=== PATIENT | male | born 2000 | race Caucasian/White ===

== ENCOUNTER 2020-05-08 08:06 | Emergency (ER) | payer OTHER ==
[~2020-05-08] VITALS: Ht 182.9 cm; Wt 188.2 kg
[~2020-05-08 08:06] MED LIST: HCTZ/LISINOPRIL PO; LISINOPRIL20 MG PO; MIRALAX17 GM PO; NORCO 5-325 TA1 EACH PO; ONDANSETRON HCL4 M2 PO; PREDNISONE 20 M20 MG PO; XARELTO15 MG PO; XARELTO20 MG PO
[2020-05-08] MEDS ORDERED: LISINOPRIL40 MG PO (08:53)
[2020-05-08] MEDS ORDERED: WELLBUTRIN XL300 MG PO (08:53)
[2020-05-08 10:47] LABS: BASOPHILS 0.4 % (0.0-2.0); EOSINOPHILS 0.9 % (0.0-3.0); HEMATOCRIT 41.3 % (42.0-52.0); LYMPHOCYTES 22.8 % (24.0-44.0); MCH 28.9 pg (26.0-34.0); MCHC 33.9 g/dL (28.0-37.0); MCV 85.1 fL (80.0-100.0); MONOCYTES 5.9 % (1.0-8.0); PLATELET COUNT 266 thou/uL (150-400); RBC 4.86 mil/uL (4.50-6.00); RDW 14.3 % (10.5-14.5); WBC 7.2 thou/uL (4.0-11.0)
[2020-05-08 10:51] LABS: ANION GAP 6 mmol/L (7-16); BUN 11 mg/dL (7-18); CHLORIDE 101 mmol/L (98-107); CO2 30 mmol/L (21-32); CREATININE 0.9 mg/dL (0.7-1.3); GLUCOSE 100 mg/dL (74-106); POTASSIUM 4.7 mmol/L (3.5-5.1); SODIUM 137 mmol/L (136-145)
[2020-05-08 11:02] LABS: ALBUMIN 3.5 g/dL (3.4-5.0); LIPASE 66 U/L (73-393); MAGNESIUM 2.1 mg/dL (1.8-2.4); SGOT 14 U/L (15-37); SGPT 34 U/L (30-65); TOTAL BILIRUBIN 0.5 mg/dL (0.2-1.0); TOTAL PROTEIN 7.5 g/dL (6.4-8.2); TROPONIN-I <0.06 ng/mL (<0.06)
[2020-05-08] MEDS ORDERED: ONDANSETRON ODT8 MG PO (11:23)
[2020-05-08] MEDS ORDERED: PEPCID20 MG PO (11:23)
[2020-05-08 12:09] VITALS: BP 123/51
--- NOTE | 2020-05-09 07:40 | EKG ---
[facility] [place] [address] ELECTROCARDIOGRAM REPORT Name: GWEN CHARLES Room #: DEP M.R.#: [id number] Admission: 05/08/20 Attend Phys: Discharge: 05/08/20 Date of : [birth year] Report #: [id number] THIS REPORT FOR: cc: Stephanie Kumar Christine L. DO Lundgren,Martin Cochran MD [facility] THIS REPORT FOR: //name// [facility] ED Test Date: 2020-05-08 Test Time: 10:27:23 Pat Name: GWEN CHARLES Department: Room: Gender: Gore Cutter: no : 2000 Requested By: Henry Buckner Order Number: [id number] MD: Martin Samson Measurements Intervals [place] Rate: 79 P: 25 TN: 166 QRS: 30 QRSD: 94 T: 8 QT: 371 QTc: 426 Interpretive Statements Sinus rhythm Poor R wave progression Compared to ECG 03/02/2016 01:34:38 No significant change was found Electronically Signed On 05-09-2020 7:39:56 CDT by Martin Samson [email or web address] <ELECTRONICALLY SIGNED> By: Martin Samson MD, [facility] 05/09/20 0739 1027 1027 Martin Samson MD, [facility] /EPI
== END 2020-05-08 12:11 | disposition home or self-care (01) ==
LOC: ER 08:06
PROVIDERS: Emergency Medicine
DX: R11.2 Nausea with vomiting, unspecified (principal); R10.9 Unspecified abdominal pain; G47.00 Insomnia, unspecified; G47.30 Sleep apnea, unspecified; I10 Essential (primary) hypertension; Z79.899 Other long term (current) drug therapy; Z88.1 Allergy status to other antibiotic agents; Z91.018 Allergy to other foods